=== PATIENT | male | born 1950 | race Caucasian/White ===

== ENCOUNTER 2018-12-22 09:37 | Emergency (ER) | payer OTHER ==
[2018-12-22] MEDS: DIATR MEGLU/DIATRIZOATE SODIUM 120 ML BTL (10:45)
[2018-12-22] MEDS: DIATR MEGLU/DIATRIZOATE SODIUM 30 ML SOLUTION PO (11:00)
== END 2018-12-22 13:05 | disposition home or self-care (01) ==
LOC: E/R 09:37
DX: K94.23 Gastrostomy malfunction (principal)
CPT/HCPCS: 43761; 74018; 82962; 99284-25

== ENCOUNTER 2019-03-01 09:47 | Emergency (ER) | payer OTHER | END 2019-03-01 11:18 | disposition home or self-care (01) | LOC: E/R 11:18 | DX: Z46.59 Encounter for fitting and adjustment of other gastrointestinal appliance and device (principal); Z79.84 Long term (current) use of oral hypoglycemic drugs; Z86.73 Personal history of transient ischemic attack (TIA), and cerebral infarction without residual deficits | CPT/HCPCS: 99283 ==

== ENCOUNTER 2019-03-09 11:14 | Inpatient (IN) | payer OTHER ==
[2019-03-09] MEDS: SODIUM CHLORIDE 0.9% 1L BAG IV* (12:31)
[2019-03-09 12:36] LABS: ABNORMAL IP MESSAGE 1; HEMATOCRIT 39.7 % (42.0-52.0); HEMOGLOBIN 12.9 g/dl (14.0-18.0); MEAN CORPUSCULAR HEMOGLOBIN 26.9 pg (29.0-33.0); MEAN CORPUSCULAR HGB CONC 32.5 g/dl (32.0-37.0); MEAN CORPUSCULAR VOLUME 82.7 fl (82.0-101.0); MEAN PLATELET VOLUME 11.6 fl (7.4-10.4); PLATELET COUNT 256 10^3/UL (140-415); POSITIVE DIFF @See below; RED CELL DISTRIBUTION WIDTH 16.4 % (11.5-14.5)
[2019-03-09 12:40] LABS: ADD MAN DIFF? YES
[2019-03-09] MEDS: CEFTRIAXONE 1 GM/50 ML (PMX) 50 ML IVPB (12:41)
[2019-03-09 12:52] LABS: ANION GAP 15 (5-13); BLOOD UREA NITROGEN 83 mg/dl (7-20); CALCIUM 10.3 mg/dl (8.4-10.2); CARBON DIOXIDE 26 mmol/L (21-31); CHLORIDE 95 mmol/L (97-110); CREATININE 1.59 mg/dl (0.61-1.24); Estimated GFR 44 mL/min (>60); GLUCOSE 114 mg/dl (70-220); POTASSIUM 4.8 mmol/L (3.5-5.1); SODIUM 136 mmol/L (135-144)
[2019-03-09 13:00] LABS: ANISOCYTOSIS 1+ (0-0); BAND NEUTROPHILS #M 2.2 10^3/ul (0.0-0.6); BAND NEUTROPHILS % (M) 7 % (0-4); MICROCYTOSIS 1+ (0-0); MONOCYTE #M 1.6 10^3/ul (0.3-0.9); MONOCYTES % (M) 5 % (0-11); PLATELET ESTIMATE NORMAL; SEG NEUT #M 28.9 10^3/ul (1.6-7.5); SEGMENTED NEUTROPHILS (M) % 88 % (39-77); SMUDGE%M 1 % (0-0)
[2019-03-09] MEDS: AZITHROMYCIN 500MG/NS (PMX) 250 ML IV (13:00)
[2019-03-09] MEDS: ALBUTEROL 0.083% (NEB) 2.5 MG/3 ML AMP HHN (13:26)
[2019-03-09] MEDS: IPRATROPIUM (NEB) 0.5 MG/2.5 ML AMP HHN (13:26)
[2019-03-09] MEDS ORDERED: ONDANSETRON 4 MG INJ IV ×3 (13:30→16:00)
[2019-03-09] MEDS ORDERED: ACETAMINOPHEN 325 MG TAB PO (13:30)
[2019-03-09] MEDS: LIDOCAINE 1% (MPF) 5 ML VIAL SC (14:06)
[2019-03-09] MEDS: SOD CHLORIDE 0.9% 1,000 ML IV ×2 (14:08→17:15)
[2019-03-09] MEDS: NORepinephrine 8MG/250 ML (PMX 250 ML IV ×2 (14:38→17:18)
[2019-03-09 15:29] LABS: LACTIC ACID 1.1 mmol/L (0.5-2.0)
[2019-03-09] MEDS ORDERED: VANCOMYCIN IV PER PHARMACY XX (15:30)
[2019-03-09] MEDS ORDERED: AZITHROMYCIN 500MG/NS (PMX) 250 ML IVPB (16:00)
[2019-03-09] MEDS ORDERED: NACL 0.9% 3 ML SYG IV (16:00)
[2019-03-09] MEDS ORDERED: IPRATROPIUM (NEB) 0.5 MG/2.5 ML AMP NEB (16:00)
[2019-03-09] MEDS ORDERED: NORepinephrine 8MG/250 ML (PMX 250 ML IV ×2 (16:00→18:00)
[2019-03-09] MEDS ORDERED: NITROGLYCERIN (SL) 0.4 MG TAB SL (16:00)
[2019-03-09] MEDS: MEROPENEM 1 GM/50ML(PMX) 50 ML IVPB (16:07)
[2019-03-09 16:22] LABS: AADO2 Arterial 70.7 mmHg (7.0-24.0); Allen Test ACCEPTAB; Arterial Base Excess -3.1 mmol/L (-3.0-3); Arterial Blood Gas Oxygen Sat 93.2 mmHG (95.0-98.0); Arterial COHb 0.1 % (0.0-3.0); Arterial Fraction of Oxyhgb 92.9 % (93.0-99.0); Arterial MetHb 0.2 % (0.0-1.5); Arterial pCO2 39.5 mmhg (35-45); MODE NASAL CANNULA; Site Right Radial
[2019-03-09] MEDS: LEVALBUTEROL (NEB) 1.25 MG/0.5 ML AMP HHN ×2 (16:45→20:33)
[2019-03-09] MEDS: IPRATROPIUM (NEB) 0.5 MG/2.5 ML AMP NEB ×2 (16:45→20:33)
[2019-03-09] MEDS ORDERED: DEXTROSE 50% 50 ML SYRINGE IV ×2 (17:00)
[2019-03-09] MEDS ORDERED: GLUCOSE GEL 15 GRAM TUBE PO ×2 (17:00)
[2019-03-09] MEDS ORDERED: GLUCOSE GEL 15 GRAM TUBE BUCCAL (17:00)
[2019-03-09] MEDS ORDERED: GLUCAGON 1 MG INJ IM (17:00)
[2019-03-09 17:10] LABS: HEMOGLOBIN A1C 5.2 % (0-5.9)
[2019-03-09] MEDS: VANCOMYCIN HCL 1.5 GM in SOD CHLORIDE 0.9% 250 ML IVPB (17:14)
[2019-03-09] MEDS ORDERED: INSULIN ASPART [NOVOLOG] 3 ML PEN SC (18:00)
[2019-03-09 19:48] LABS: LACTIC ACID 1.1 mmol/L (0.5-2.0)
[2019-03-09] MEDS: ATORVASTATIN 10 MG TAB PO (20:42)
[2019-03-09] MEDS: INSULIN ASPART [NOVOLOG] 3 ML PEN SC (20:43)
[2019-03-09] MEDS: HEPARIN 5,000 UNIT/1 ML VIAL SC (20:44)
[2019-03-09] MEDS ORDERED: FAMOTIDINE 20 MG INJ IV (21:00)
[2019-03-09] MEDS ORDERED: METOPROLOL (XL) 100 MG TAB PO (21:00)
[2019-03-09] MEDS: DIGOXIN 0.25 MG TAB PO (21:41)
[2019-03-10] MEDS: INSULIN ASPART [NOVOLOG] 3 ML PEN SC ×6 (00:14→20:09)
[2019-03-10] MEDS: LEVALBUTEROL (NEB) 1.25 MG/0.5 ML AMP HHN ×6 (00:42→20:22)
[2019-03-10] MEDS: IPRATROPIUM (NEB) 0.5 MG/2.5 ML AMP NEB ×6 (00:42→20:22)
[2019-03-10] MEDS ORDERED: ACCU-CHEK XX (02:00)
[2019-03-10] MEDS: MEROPENEM 1 GM/50ML(PMX) 50 ML IVPB ×2 (04:09→15:08)
[2019-03-10] MEDS: SOD CHLORIDE 0.9% 1,000 ML IV ×2 (04:10→18:53)
[2019-03-10] MEDS: NORepinephrine 8MG/250 ML (PMX 250 ML IV (04:21)
[2019-03-10 05:22] LABS: ADD MAN DIFF? NO
[2019-03-10 05:25] LABS: WHITE BLOOD COUNT 22.8 10^3/ul (4.8-10.8)
[2019-03-10 05:25] LABS: ABNORMAL IP MESSAGE 1; BASOPHIL # 0.1 10^3/ul (0.0-0.1); BASOPHILS % 0.3 % (0.0-2.0); EOSINOPHILS # 0.2 10^3/ul (0.0-0.5); EOSINOPHILS % 0.8 % (0.0-7.0); HEMATOCRIT 31.3 % (42.0-52.0); LYMPHOCYTES # 1.1 10^3/ul (0.8-2.9); LYMPHOCYTES % 4.7 % (15.0-51.0); MEAN CORPUSCULAR HEMOGLOBIN 26.8 pg (29.0-33.0); MEAN CORPUSCULAR HGB CONC 31.9 g/dl (32.0-37.0); MEAN CORPUSCULAR VOLUME 83.9 fl (82.0-101.0); MEAN PLATELET VOLUME 12.8 fl (7.4-10.4); MONOCYTE # 0.9 10^3/ul (0.3-0.9); MONOCYTES % 3.9 % (0.0-11.0); NEUTROPHIL # 20.4 10^3/ul (1.6-7.5); NEUTROPHILS % 89.7 % (39.0-77.0); PLATELET COUNT 196 10^3/UL (140-415); POSITIVE DIFF @See below; RED BLOOD COUNT 3.73 10^6/ul (4.70-6.10); RED CELL DISTRIBUTION WIDTH 16.8 % (11.5-14.5)
[2019-03-10 05:53] LABS: ALANINE AMINOTRANSFERASE 28 IU/L (13-69); ALBUMIN 3.2 g/dl (3.3-4.9); ALBUMIN/GLOBULIN RATIO 1.45; ALKALINE PHOSPHATASE 27 IU/L (42-121); ANION GAP 10 (5-13); ASPARTATE AMINO TRANSFERASE 24 IU/L (15-46); BILIRUBIN,INDIRECT 0.5 mg/dl (0-1.1); BILIRUBIN,TOTAL 0.5 mg/dl (0.2-1.3); BLOOD UREA NITROGEN 41 mg/dl (7-20); CALCIUM 8.8 mg/dl (8.4-10.2); CARBON DIOXIDE 29 mmol/L (21-31); CHLORIDE 105 mmol/L (97-110); CHOL/HDL RATIO 2.2 RATIO; CHOLESTEROL 80 mg/dl (100-200); Estimated GFR > 60 mL/min (>60); GLUCOSE 85 mg/dl (70-220); HDL CHOLESTEROL 35 mg/dl (30-78); LDL CHOLESTEROL,CALCULATED 28 mg/dl; MAGNESIUM 1.8 mg/dl (1.7-2.5); PHOSPHORUS 2.5 mg/dl (2.5-4.9); POTASSIUM 3.2 mmol/L (3.5-5.1); SODIUM 144 mmol/L (135-144); TOTAL PROTEIN 5.4 g/dl (6.1-8.1); TRIGLYCERIDES 85 mg/dl (0-149)
[2019-03-10] MEDS: POTASSIUM CHLORIDE 100 ML IVPB ×2 (07:10→09:56)
[2019-03-10] MEDS: MAGNESIUM SULFATE 2 GM/50 ML 50 ML IVPB (07:11)
[2019-03-10] MEDS ORDERED: INSULIN GLARGINE [LANTus] (100 UNITS/ML) SYG SC (08:00)
[2019-03-10] MEDS ORDERED: NON-FORMULARY/PATIENT OWN MED (Fenofibrate, Micronized* (Fenofibrate*) 160 MG) PO (09:00)
[2019-03-10] MEDS: FENOFIBRATE 145 MG TAB PO (09:56)
[2019-03-10] MEDS: HEPARIN 5,000 UNIT/1 ML VIAL SC ×2 (10:07→20:10)
[2019-03-10] MEDS ORDERED: AZITHROMYCIN 500MG/NS (PMX) 250 ML IVPB (12:00)
[2019-03-10] MEDS: VANCOMYCIN 750 MG (PMX) 250 ML IVPB (16:45)
[2019-03-10] MEDS ORDERED: VANCOMYCIN 1 GM 250 ML IVPB (17:00)
[2019-03-10] MEDS: ATORVASTATIN 10 MG TAB PO (20:09)
[2019-03-11] MEDS: LEVALBUTEROL (NEB) 1.25 MG/0.5 ML AMP HHN ×6 (00:38→20:52)
[2019-03-11] MEDS: IPRATROPIUM (NEB) 0.5 MG/2.5 ML AMP NEB ×6 (00:38→20:52)
[2019-03-11] MEDS: INSULIN ASPART [NOVOLOG] 3 ML PEN SC ×6 (00:53→20:45)
[2019-03-11] MEDS: MEROPENEM 1 GM/50ML(PMX) 50 ML IVPB ×3 (03:46→21:51)
[2019-03-11] MEDS: VANCOMYCIN 750 MG (PMX) 250 ML IVPB ×2 (04:26→18:49)
[2019-03-11 05:33] LABS: ADD MAN DIFF? NO
[2019-03-11 05:40] LABS: BASOPHIL # 0.1 10^3/ul (0.0-0.1); BASOPHILS % 0.4 % (0.0-2.0); EOSINOPHILS # 0.3 10^3/ul (0.0-0.5); HEMATOCRIT 31.4 % (42.0-52.0); HEMOGLOBIN 9.9 g/dl (14.0-18.0); LYMPHOCYTES # 0.8 10^3/ul (0.8-2.9); LYMPHOCYTES % 6.2 % (15.0-51.0); MEAN CORPUSCULAR HEMOGLOBIN 26.7 pg (29.0-33.0); MEAN CORPUSCULAR HGB CONC 31.5 g/dl (32.0-37.0); MEAN CORPUSCULAR VOLUME 84.6 fl (82.0-101.0); MEAN PLATELET VOLUME 12.3 fl (7.4-10.4); MONOCYTE # 0.8 10^3/ul (0.3-0.9); MONOCYTES % 6.3 % (0.0-11.0); NEUTROPHIL # 11.1 10^3/ul (1.6-7.5); NEUTROPHILS % 84.3 % (39.0-77.0); PLATELET COUNT 187 10^3/UL (140-415); RED BLOOD COUNT 3.71 10^6/ul (4.70-6.10); RED CELL DISTRIBUTION WIDTH 16.9 % (11.5-14.5)
[2019-03-11 05:40] LABS: WHITE BLOOD COUNT 13.2 10^3/ul (4.8-10.8)
[2019-03-11 06:40] LABS: ANION GAP 10 (5-13); BLOOD UREA NITROGEN 25 mg/dl (7-20); CALCIUM 8.9 mg/dl (8.4-10.2); CARBON DIOXIDE 31 mmol/L (21-31); CHLORIDE 103 mmol/L (97-110); CREATININE 0.66 mg/dl (0.61-1.24); Estimated GFR > 60 mL/min (>60); GLUCOSE 91 mg/dl (70-220); MAGNESIUM 1.8 mg/dl (1.7-2.5); PHOSPHORUS 1.6 mg/dl (2.5-4.9); POTASSIUM 3.9 mmol/L (3.5-5.1); SODIUM 144 mmol/L (135-144)
[2019-03-11] MEDS: SOD CHLORIDE 0.9% 1,000 ML IV ×2 (07:53→21:13)
[2019-03-11 08:12] LABS: AADO2 Arterial 67.4 mmHg (7.0-24.0); Allen Test ACCEPTAB; Arterial Base Excess 3.8 mmol/L (-3.0-3); Arterial Blood Gas Oxygen Sat 94.3 mmHG (95.0-98.0); Arterial COHb 0.3 % (0.0-3.0); Arterial Fraction of Oxyhgb 93.9 % (93.0-99.0); Arterial HCO3 28.6 mmol/L (22.0-26.0); Arterial MetHb 0.1 % (0.0-1.5); Arterial pCO2 44.1 mmhg (35-45); MODE NASAL CANNULA; Site Right Radial
[2019-03-11] MEDS: FENOFIBRATE 145 MG TAB PO (08:31)
[2019-03-11] MEDS: HEPARIN 5,000 UNIT/1 ML VIAL SC ×2 (08:39→20:46)
[2019-03-11] MEDS: POTASSIUM PHOSPHATE 30 MM in SOD CHLORIDE 0.9% 250 ML IVPB (15:00)
[2019-03-11] MEDS: DIGOXIN 0.25 MG TAB PO (16:57)
[2019-03-11] MEDS: ATORVASTATIN 10 MG TAB PO (20:41)
[2019-03-11] MEDS: MAGNESIUM SULFATE 2 GM/50 ML 50 ML IVPB ×2 (22:25→22:41)
[2019-03-12] MEDS: INSULIN ASPART [NOVOLOG] 3 ML PEN SC ×4 (00:33→12:52)
[2019-03-12] MEDS: LEVALBUTEROL (NEB) 1.25 MG/0.5 ML AMP HHN ×4 (00:44→13:00)
[2019-03-12] MEDS: IPRATROPIUM (NEB) 0.5 MG/2.5 ML AMP NEB ×4 (00:44→13:00)
[2019-03-12] MEDS: SOD CHLORIDE 0.9% 1,000 ML IV (01:20)
[2019-03-12 04:13] LABS: VANCOMYCIN,TROUGH 8.3 ug/ml (10.0-20.0)
[2019-03-12] MEDS: VANCOMYCIN 1 GM 250 ML IVPB (04:43)
[2019-03-12] MEDS: MEROPENEM 1 GM/50ML(PMX) 50 ML IVPB (06:55)
[2019-03-12] MEDS: ACETAMINOPHEN 650MG/20.3ML CUP PO (07:02)
[2019-03-12] MEDS: HEPARIN 5,000 UNIT/1 ML VIAL SC (09:26)
[2019-03-12] MEDS: FENOFIBRATE 145 MG TAB GTB (09:28)
[2019-03-12] MEDS: LEVOFLOXACIN 750MG/D5W (PMX) 150 ML IVPB (15:22)
== END 2019-03-12 17:35 | DRG 871 ==
LOC: E/R 11:14 → 2NE 03-10 21:40 → ICU 13:20
PROVIDERS: Internal Medicine
DX: A41.9 Sepsis, unspecified organism (principal); R65.21 Severe sepsis with septic shock; J69.0 Pneumonitis due to inhalation of food and vomit; N17.9 Acute kidney failure, unspecified; E11.9 Type 2 diabetes mellitus without complications; I10 Essential (primary) hypertension; E78.5 Hyperlipidemia, unspecified; I48.0 Paroxysmal atrial fibrillation; R13.10 Dysphagia, unspecified; R32 Unspecified urinary incontinence; R55 Syncope and collapse; Z85.858 Personal history of malignant neoplasm of other endocrine glands
CPT/HCPCS: 36415; 36600; 71045; 76937; 80048; 80053; 80061; 80202; 82803; 82962; 83036; 83605; 83735; 84100; 85025; 87040-91; 87070; 87081; 87086; 92526; 92610; 93005; 93306; 94640; 94664; 96365; 96368; 97162; 99285-25